=== PATIENT | female | born 1965 | race Caucasian/White ===

== ENCOUNTER → 2019-04-07 13:30 | Outpatient (CLI) | payer OTHER, SELFPAY ==
--- NOTE | 2019-04-07 | DI.MRI.S_ITS ---
PROCEDURE: MR CERVICAL SPINE WO CON INDICATIONS: Cervicalgia TECHNIQUE: Noncontrast sagittal T1 spin echo and T2 fast spin echo, sagittal STIR, foraminal oblique sagittal T2 fast spin echo, and axial gradient echo or T2 fast spin echo through the cervical spine. COMPARISON: None. FINDINGS: Image quality: Excellent Alignment and Curvature: Straightening of the normal cervical lordosis. Bone Marrow: Multilevel degenerative endplate sclerosis and spurring. Diffuse facet arthropathy. Spinal Cord: Visualized spinal cord has normal size and signal. No cerebellar tonsillar herniation. Paraspinous Soft Tissues: No paravertebral masses. Prevertebral soft tissues are normal in thickness. C2-C3: Normal appearance. C3-C4: Bilateral uncovertebral arthropathy and posterior intervening disc osteophyte complex, and bilateral facet disease. Mild canal narrowing with effacement of the anterior thecal sac. No definite foraminal stenosis bilaterally C4-C5: Bilateral uncovertebral arthropathy and posterior intervening disc osteophyte complex, and bilateral facet arthropathy. Mild canal narrowing with effacement of the intrathecal sac. No definite foraminal stenosis bilaterally C5-C6: Bilateral uncovertebral arthropathy and posterior intervening disc osteophyte complex, and bilateral facet arthropathy. Mild central canal narrowing with effacement of the intrathecal sac. Mild right foraminal stenosis and severe left foraminal narrowing with compression of the nerve root. C6-C7: Bilateral uncovertebral arthropathy and posterior intervening disc osteophyte complex, and bilateral facet disease. Mild to moderate right foraminal narrowing, which appears to abut although does not deform the exiting nerve root. Severe left foraminal stenosis with compression of the nerve root C7-T1: Normal appearance. IMPRESSION: Severe left C5-C6 and C6-C7 foraminal stenoses. No high-grade central canal narrowing. Straightening of normal cervical lordosis Dictated by: Yandel Villarreal M.D. on 04/07/2019 at 15:59 Approved by: Yandel Villarreal M.D. on 04/07/2019 at 16:08
--- NOTE | 2019-04-07 | DI.MRI.S_ITS ---
PROCEDURE: MR LUMBAR SPINE WO CON INDICATIONS: Low back pain TECHNIQUE: Noncontrast sagittal T1 spin echo and T2 fast echo, sagittal STIR, axial T1 and T2 fast spin echo through the lumbar spine. In cases with scoliosis, additional coronal T2 fast spin echo may be performed. COMPARISON: [facility], MR, MR CERVICAL SPINE WO CON, 04/07/2019, 14:04. FINDINGS: Image quality: Diagnostic Alignment and Curvature: There is normal bony alignment. Bone Marrow: Marrow is of normal overall signal. No acute vertebral body compression fractures. Several nonacute Schmorl's nodes are seen, particularly affecting the superior endplate of L3 and L4. Spinal Cord: Conus medullaris terminates at the L1 level. Visualized cord demonstrates normal signal and size. Paraspinous Soft Tissues: No paravertebral masses. T12-L1: Normal appearance. L1-L2: Normal appearance. L2-L3: Normal appearance. L3-L4: The disc height is well-preserved. Loss of disc signal is seen at this level. L4-L5: Mild loss of disc height is seen. Loss of disc signal is seen. Mild to moderate disc bulge is seen. [id number] facet hypertrophy is seen. There is at least moderate bilateral neural foraminal narrowing seen. No significant central canal narrowing is seen. L5-S1: Moderate to severe loss of disc height and disc signal are seen. Reactive marrow endplate changes are seen, which are hyperintense on T1-weighted and T2-weighted imaging and most consistent with fatty metaplasia (Modic type II changes). [id number] disc bulge is seen. Mild facet joint hypertrophy is seen. Mild bilateral neural foraminal narrowing is seen. The central canal is widely patent. IMPRESSION: Lower lumbar spine degenerative changes are seen, including at least moderate bilateral neural foraminal narrowing at L4-L5. Dictated by: Jin Bowden M.D. on 04/07/2019 at 14:56 Approved by: Jin Bowden M.D. on 04/07/2019 at 14:58
== END ==
PROVIDERS: PCP Family Medicine; Referring Provider Family Medicine; Visit Provider Family Medicine
DX: M54.5 Low back pain (principal); M47.816 Spondylosis without myelopathy or radiculopathy, lumbar region; M47.817 Spondylosis without myelopathy or radiculopathy, lumbosacral region; M48.061 Spinal stenosis, lumbar region without neurogenic claudication; M48.07 Spinal stenosis, lumbosacral region; M48.02 Spinal stenosis, cervical region
CPT/HCPCS: 72141; 72148

== ENCOUNTER → 2024-03-10 12:28 | Outpatient (CLI) | payer OTHER, SELFPAY ==
--- NOTE | 2024-03-10 12:30 | DI.MRI.S_ITS ---
PROCEDURE: MR LUMBAR SPINE WO CON INDICATIONS: Low back pain, unspecified TECHNIQUE: Noncontrast sagittal T1 spin echo and T2 fast echo, sagittal STIR, and T2 fast spin echo through the lumbar spine. In cases with scoliosis, additional coronal T2 fast spin echo may be performed. COMPARISON: [facility], MR, MR LUMBAR SPINE WO CON, 04/07/2019, 14:31. FINDINGS: Image quality: Excellent. Alignment and Curvature: Straightening of the normal lumbar lordosis. Mild anterolisthesis of L4 on L5. Bone Marrow: Modic type 1 degenerative endplate changes at L4-5. Modic type 2 degenerative endplate changes at L4-5 and L5-S1. Marrow is of normal overall signal. No acute vertebral body compression fractures. Spinal Cord: Conus medullaris terminates at the L2 level. Visualized cord demonstrates normal signal and size. Paraspinous Soft Tissues: No paravertebral masses. T2 hyperintensity in the left kidney, favored to represent a simple cyst. T12-L1: Normal appearance. L1-L2: Normal appearance. L2-L3: Disc desiccation height loss. Posterior disc bulge is increased compared to prior. Mild central canal stenosis and mild left neural foraminal stenosis. No right neural foraminal stenosis. L3-L4: Disc desiccation and mild diffuse disc bulge. No central canal or neural foraminal stenosis. L4-L5: Severe disc desiccation height loss. Mild disc bulge. Facet arthropathy. No significant central canal stenosis. Moderate bilateral neural foraminal stenosis is stable. L5-S1: Disc desiccation height loss. Minimal disc bulge. Facet arthropathy. No central canal stenosis. Mild bilateral neural foraminal stenosis. IMPRESSION: 1. Multilevel degenerative changes of the lumbar spine, mildly progressed at L2-L3. Otherwise, degenerative changes are stable. 2. Progression of disc desiccation and height loss at L4-5 with stable moderate bilateral neural foraminal stenosis. Dictated by: Jeferson Escobar M.D. on 03/10/2024 at 15:17 Approved by: Jeferson Escobar M.D. on 03/10/2024 at 15:22
== END ==
PROVIDERS: PCP Nurse Practitioner Family; Referring Provider Nurse Practitioner Family; Visit Provider Nurse Practitioner Family
DX: M47.816 Spondylosis without myelopathy or radiculopathy, lumbar region (principal); M47.817 Spondylosis without myelopathy or radiculopathy, lumbosacral region; M48.061 Spinal stenosis, lumbar region without neurogenic claudication; M48.07 Spinal stenosis, lumbosacral region; M54.50 Low back pain, unspecified
CPT/HCPCS: 72148